=== PATIENT | male | born 1985 | race Asian ===

== ENCOUNTER 2020-04-30 16:50 | Outpatient (CLI) | payer OTHER | END 2020-04-30 16:51 | disposition home or self-care (01) | LOC: COV 16:50 | PROVIDERS: ATTEND Family Medicine | DX: R19.7 Diarrhea, unspecified (principal); R09.81 Nasal congestion; J34.89 Other specified disorders of nose and nasal sinuses; Z20.822 Contact with and (suspected) exposure to COVID-19 ==